=== PATIENT | female | born 2000 | race Caucasian/White ===

== ENCOUNTER 2018-07-02 22:20 | Emergency (ER) | payer OTHER ==
[2018-07-02] MEDS ORDERED: Lidocaine 2% VISCOUS* 15 ML UDC PO ONE (23:07)
[2018-07-02] MEDS ORDERED: Azithromycin TAB* 250 MG PO ONE (23:08)
--- NOTE | 2018-07-02 23:13 | ED ---
Throat Pain/Nasal Congestion - HPI Summary HPI Summary: Patient complains of sore throat 2 days. Patient states pain baseline 10, 10 with swallowing. Patient states she has been eating and drinking as well as possible. Denies fever, WILSON, ear pain, neck stiffness, cough, N/V/D, abdominal pain, body aches, change in urine, change in BM, fatigue. Medical history is none. No antipyretics taken today. - History of Current Complaint Chief Complaint: EDThroatPain Time Seen by Provider: 07/02/18 22:45 Hx Obtained From: Patient Onset/Duration: Gradual Onset Severity: Severe Associated Signs And Symptoms: Positive: Dysphagia. Negative: Drooling, Wheezing, Hoarseness Cough: None - Allergies/Home Medications Allergies/Adverse Reactions: Allergies Allergy/AdvReac Type Severity Reaction Status Date / Time No Known Allergies Allergy Verified 07/02/18 22:23 Home Medications: Home Medications Sertraline* [Zoloft*] 25 mg PO DAILY 07/02/18 [History Confirmed 07/02/18] PMH/Surg Hx/FS Hx/Imm Hx Endocrine/Hematology History: Reports: Hx Anticoagulant Therapy Cardiovascular History: Reports: Hx Cardiac Arrest History: Reports: Hx Dialysis Neurological History: Reports: Hx CVA Psychiatric History: Reports: Hx Autism Infectious Disease History: No Infectious Disease History: Denies: Traveled Outside the [place] in Last 30 Days - Family History Known Family History: Positive: Non-Contributory - Social History Occupation: Student Alcohol Use: None Substance Use Type: Reports: None Smoking Status (MU): Never Smoked Tobacco Review of Systems Constitutional: Negative Eyes: Negative Positive: Sore Throat Cardiovascular: Negative Respiratory: Negative Gastrointestinal: Negative Genitourinary: Negative Musculoskeletal: Negative Skin: Negative Neurological: Negative Psychological: Normal All Other Systems Reviewed And Are Negative: Yes Physical Exam Triage Information Reviewed: Yes Vital Signs On Initial Exam: Initial Vitals Temp Pulse Resp BP Pulse Ox 97.8 F 98 16 102/58 99 07/02/18 22:22 07/02/18 22:22 07/02/18 22:22 07/02/18 22:22 07/02/18 22:22 Vital Signs Reviewed: Yes Appearance: Positive: Well-Appearing Skin: Positive: Warm Head/Face: Positive: Normal Head/Face Inspection Eyes: Positive: Normal ENT: Positive: Pharyngeal erythema, TMs normal, Uvula midline. Negative: Tonsillar swelling, Tonsillar exudate, Trismus, Muffled voice, Hoarse voice Neck: Positive: Supple Respiratory/Lung Sounds: Positive: Clear to Auscultation Cardiovascular: Positive: Normal Abdomen Description: Positive: Nontender Musculoskeletal: Positive: Normal Neurological: Positive: Normal Psychiatric: Positive: Normal AVPU Assessment: Alert - Rj Coma Scale Best Eye Response: 4 - Spontaneous Best Motor Response: 6 - Obeys Commands Best Verbal Response: 5 - Oriented Coma Scale Total: 15 Diagnostics - Vital Signs Vital Signs Temp Pulse Resp BP Pulse Ox 07/02/18 22:22 97.8 F 98 16 102/58 99 - Laboratory Lab Results: Lab Results 07/02/18 Range/Units 22:34 Group A Strep Rapid Negative (Negative) Lab Statement: Any lab studies that have been ordered have been reviewed, and results considered in the medical decision making process. EENT Course/Dx - Course Course Of Treatment: Patient complains of sore throat 2 days. Patient states pain baseline 7/10, 10/10 with swallowing. Patient states she has been eating and drinking as well as possible. Denies fever, WILSON, ear pain, neck stiffness, cough, N/V/D, abdominal pain, body aches, change in urine, change in BM, fatigue. Medical history is none. No antipyretics taken today. Physical exam : Positive oropharyngeal erythema without tonsillar exudate or swelling. Vital signs within normal limits and stable. Strep negative. Rx for viscous lidocaine, Z-Daniel. - Diagnoses Provider Diagnoses: Pharyngitis Discharge - Sign-Out/Discharge Documenting (check all that apply): Patient Departure - Discharge Plan Condition: Stable Disposition: HOME Prescriptions: Azithromycin 250 mg PO DAILY 4 Days #4 tablet Lidocaine 2% VISCOUS* [Xylocaine 2% Viscous*] 15 ml SWISH SPIT Q6H PRN #1 btl PRN Reason: Pain Patient Education Materials: Pharyngitis (ED) Referrals: No Primary Care Phys,NOPCP [Primary Care Provider] - [facility] [Outside] Additional Instructions: Alternate 600 mg of Tylenol with 600 mg of ibuprofen every 3 hours for throat pain. Follow-up with primary care. Return to the ED for any new or worsening symptoms - Billing Disposition and Condition Condition: STABLE Disposition: Home
[2018-07-02 23:15] VITALS: BP 109/68
== END 2018-07-02 23:29 | disposition home or self-care (01) ==
LOC: ED 22:20
DX: J02.9 Acute pharyngitis, unspecified (principal); R13.10 Dysphagia, unspecified
CPT/HCPCS: 87651; 99282; A9270-GY